=== PATIENT | male | born 1975 | race Two or more races ===

== ENCOUNTER 2024-03-15 18:19 | Emergency (ER) | payer OTHER ==
[~2024-03-15] VITALS: Ht 167.6 cm; Wt 100.3 kg
--- NOTE | 2024-03-15 19:27 | ED.PDOC ---
SOB-HPI HPI Comments 48-YEAR-OLD MALE PRESENTS TO ER WITH COMPLAINTS OF COUGH X1 WEEK. PATIENT REPORTS HE HAS BEEN EXPERIENCING COUGH X1 WEEK WITH ASSOCIATED FEVER X1 DAY. REPORTS THAT THE COUGH WAS INITIALLY DRY BUT TURNED PRODUCTIVE WITH YELLOW PHLEGM X2 DAYS. REPORTS USE OF [id number] COUGH SYRUP WITHOUT RELIEF. PATIENT PRESENTS TO ER FEBRILE ON ARRIVAL AT 102.8 F, AMBULATORY, WITH STEADY GAIT, IN NO DISTRESS AND REPORTS POSITIVE EXPOSURE TO SICK CONTACTS AT HOME. DENIES CHEST PAIN, HEMOPTYSIS, SHORTNESS OF BREATH, PALPITATIONS, SORE THROAT, NAUSEA/VOMITING, HEADACHE, DIZZINESS, ABDOMINAL PAIN OR ANY FURTHER SYMPTOMS/COMPLAINTS Chief Complaint: Flu like Time Seen by MD: 18:23 Primary Care Provider: SAMMI Reviewed notes: Nurses Notes, Medications, Allergies Information Source: Patient Mode of Arrival: Ambulatory Past Medical History Past Medical History (Other): Pneumonia-2006 Surgical History: Denies all surgeries Family History Family History: Unknown Social History Lives In: Home Constitutional: reports: others ( STATED IN HPI) EENTM: denies: blurred vision, double vision, ear bleeding, ear discharge, ear drainage, ear pain, ear ringing, eye pain, eye redness, hearing loss, mouth pain, mouth swelling, nasal discharge, nose bleeding, nose congestion, nose pain, photophobia, tearing, throat pain, throat swelling, voice changes, others Respiratory: reports: others ( STATED IN HPI) Cardiovascular: denies: chest pain, dizzy spells, diaphoresis, Dyspnea on exertion, edema, irregular heart beat, left arm pain, lightheadedness, palpitations, PND, syncope, others Gastrointestinal: denies: abdomen distended, abdominal pain, blood streaked bowels, constipated, diarrhea, dysphagia, difficulty swallowing, hematemesis, melena, nausea, poor appetite, poor fluid intake, rectal bleeding, rectal pain, vomiting, others Genitourinary: denies: burning, dysuria, flank pain, frequency, hematuria, incontinence, penile discharge, penile sore, pain, testicle pain, testicle swelling, urgency, others Neurological: denies: dizziness, fainting, headache, left sided numbness, left sided weakness, numbness, paresthesia, pre-existing deficit, right sided numbness, right sided weakness, seizure, speech problems, tingling, tremors, weakness, others Musculoskeletal: denies: back pain, gout, joint pain, joint swelling, muscle pain, muscle stiffness, neck pain, others Integumetry: denies: bruises, change in color, change in hair/nails, dryness, laceration, lesions, lumps, rash, wounds, others Allergic/Immunocompromised: denies: Difficulty Healing, Frequent Infections, Hives, Itching, others Hematologic/Lymphatic: denies: anemia, blood clots, easy bleeding, easy bruising, swollen glands, others Endocrine: denies: excessive hunger, excessive sweating, excessive thirst, excessive urination, flushing, intolerance to cold, intolerance to heat, unexplained weight gain, unexplained weight loss, others Psychiatric: denies: anxiety, bipolar disorder, depression, hopeless, panic disorder, schizophrenia, sleepless, suicidal, others Physical Exam General Appearance: No Apparent Distress, Obese HEENT: Normal ENT Inspection, PERRL/EOMI, Pharynx Normal, TMs Normal Neck: Full Range of Motion, Non-Tender, Normal Respiratory: Chest Non-Tender, Decreased Breath Sounds (Slightly noted to right lower lung sainz), Lungs Clear, No Accessory Muscle Use, No Respiratory Distress Cardiovascular: No Murmur, No Gallop, Tachycardia Breast Exam: Deferred Gastrointestinal: No Organomegaly, Non Tender, No Pulsatile Mass, Soft Genitalia: Deferred Pelvic: Deferred Rectal: Deferred Extremities: Normal capillary refill, Normal range of motion Neurologic: Alert, No Motor Deficits, Normal Affect, Normal Mood, No Sensory Deficits Cerebellar Function: Normal Reflexes: Normal Skin: Dry, Normal Color, Warm Peripheral Pulses: 3+ Radial (R), 3+ Radial (L), 3+ Brachial (R), 3+ Brachial (L) Lymphatic: No Adenopathy Was a procedure done? Was a procedure done?: No Sedation Sedation?: No Differential Dx Differential Diagnosis: Pneumonia, Pulmonary Embolism, Respiratory Distress, Pharyngitis X-Ray, Labs, Meds, VS Vital Signs Date Time Temp Pulse Resp B/P (MAP) Pulse Ox O2 Delivery O2 Flow Rate FiO2 03/15/24 22:01 98.6 98.6 03/15/24 21:07 100.0 03/15/24 21:07 100.0 117 20 117/67 (84) 98 100.0 03/15/24 21:00 94 Room Air* 0 21 03/15/24 19:59 102.8 03/15/24 18:43 94 0 03/15/24 18:43 102.8 122 17 117/84 (95) 94 Lab Test 03/15/24 20:05 Range/Units White Blood Count 12.0 H 4.4-10.8 10^3/uL Red Blood Count 4.90 4.5-5.90 10^6/uL Hemoglobin 15.2 13.5-17.5 g/dL Hematocrit 44.4 41.0-53.0 % Mean Corpuscular Volume 90.5 80.0-100.0 fL Mean Corpuscular Hemoglobin 31.1 28.0-32.0 pg Mean Corpuscular Hemoglobin Concent 34.3 32.0-36.0 g/dL Red Cell Distribution Width 12.7 11.8-14.3 % Platelet Count 238 140-450 10^3/uL Mean Platelet Volume 7.8 6.9-10.8 fL Neutrophils (%) (Auto) 78.0 37.0-80.0 % Lymphocytes (%) (Auto) 10.3 10.0-50.0 % Monocytes (%) (Auto) 11.0 0.0-12.0 % Eosinophils (%) (Auto) 0.1 0.0-7.0 % Basophils (%) (Auto) 0.6 0.0-2.0 % Neutrophils # (Auto) 9.4 H 1.6-8.6 10 ^3/uL Lymphocytes # (Auto) 1.2 0.4-5.4 10 ^3/uL Monocytes # (Auto) 1.3 0-1.3 10 ^3/uL Eosinophils # (Auto) 0 0-0.8 10 ^3/uL Basophils # (Auto) 0.1 0-0.2 10 ^3/uL Nucleated Red Blood Cells 0.0 % D-Dimer, Quantitative 0.51 H 0.0-0.49 mg/L FEU Sodium Level 132 L 136-145 mmol/L Potassium Level 3.9 3.5-5.1 mmol/L Chloride Level 101 98-107 mmol/L Carbon Dioxide Level 24 20-31 mmol/L Anion Gap 7 5-15 Blood Urea Nitrogen 7 L 9-23 mg/dL Creatinine 0.84 0.700-1.30 mg/dL Glomerular Filtration Rate Calc 106 >90 mL/min BUN/Creatinine Ratio 8.3 L 10.0-20.0 Serum Glucose 229 H 74-106 mg/dL Lactic Acid Level 2.0 0.4-2.0 mmol/L Calcium Level 9.3 8.7-10.4 mg/dL Total Bilirubin 1.1 H 0.2-1.0 mg/dL Aspartate Amino Transferase (AST) 32 13-40 U/L Alanine Aminotransferase (ALT) 79 H 7-40 U/L Alkaline Phosphatase 115 46-116 U/L Troponin I High Sensitivity < 3 L </=54 ng/L Total Protein 7.3 5.7-8.2 g/dL Albumin 4.6 3.2-4.8 g/dL Current Medications Medications (Trade) Dose Ordered Sig/Janeth Route Start Time Stop Time Status Last Admin Ibuprofen (Motrin Tablet) 400 mg ONCE ONCE PO 03/15/24 18:45 03/15/24 18:46 DC 03/15/24 19:59 Ceftriaxone Sodium (Rocephin) 1,000 mg ONCE ONCE IM 03/15/24 18:45 03/15/24 18:46 DC 03/15/24 20:00 Methylprednisolone Sodium Succinate (Solu Medrol) 125 mg ONCE ONCE IM 03/15/24 18:45 03/15/24 18:46 DC 03/15/24 19:59 Azithromycin 250 ml @ 125 mls/hr ONCE ONCE IV 03/15/24 20:15 03/15/24 22:14 DC 03/15/24 20:59 Sodium Chloride 1,000 ml @ 1,000 mls/hr Q1H ONCE IV 03/15/24 20:15 03/15/24 21:14 DC 03/15/24 20:43 PATIENT: VALERIO RAMOS ACCT: [id number] UNIT: [id number] : 1975 LOC: ER ROOM / BED: / AGE / SEX: 48 / M ADM STATUS: REG ER SERVICE 38 ORDERING PHYSICIAN: SAGRARIO WORKMAN PROCEDURE(s): CTACH - CT ANGIO CHEST CONTRAST REASON: elevated d-dimer, r/o PE ORDER NUMBER(s): [id number], ACCESSION NUMBER(s): [id number] Procedure: CT CT ANGIO CHEST CONTRAST Reason for study/Clinical History: elevated d-dimer, r/o PE Comparison Study: None available at time of dictation. Exam Date: 03/15/2024 09:49 PM Radiation Dose Information: CT Dose: CTDI volume is 23.89 mGy. Dose-length product is 927.51 mGy*cm Contrast: Type of contrast: Omnipaque 350 Contrast inject: 100 mL Contrast wasted:0 TECHNIQUE: After the uneventful administration of intravenous contrast intravenously, CT imaging was performed through the chest. Coronal and sagittal reformations were performed by the technologist. Sagittal and coronal MIP images were reconstructed in submitted for interpretation. FINDINGS: Lower Neck: Visualized portions of the thyroid gland are unremarkable. Aorta and Vasculature: Normal caliber of thoracic aorta. Lymph Nodes: No enlarged intrathoracic lymph nodes. Mediastinum: Heart size is normal. There is no pericardial effusion. The esophagus is unremarkable. Lungs: No focal consolidation, pleural effusion or significant pneumothorax. No suspicious pulmonary nodule or mass. Musculoskeletal: No acute osseous abnormality. Upper abdomen: Limited portions of the upper abdomen are unremarkable. IMPRESSION: 1. No findings of pulmonary emboli or pulmonary artery hypertension. 2. Please note opacification of the pulmonary artery was suboptimal. Required opacification is 266 Hounsfield units. Opacification achieved with 187HU. 3. There are no infiltrates or effusions. 4. All CT scans at this medical facility are performed using dose modulation techniques as appropriate to a performed exam including the following: Automated exposure control was utilized; adjustment of the MA and/or KV according to patient size; and use of iterative reconstruction technique. HS:Y ATED BY: HARRIS LOPEZ Jr., DO DICTATED DATE/TIME: 03/15/242306 SIGNED BY: HARRIS LOPEZ Jr., SIGNED DATE/TIME: 03/15/242306 CC: PATIENT: VALERIO RAMOS ACCT: [id number] UNIT: [id number] : 1975 LOC: ER ROOM / BED: / AGE / SEX: 48 / M ADM STATUS: REG ER SERVICE [id number] ORDERING PHYSICIAN: SAGRARIO WORKMAN PROCEDURE(s): CXR1 - CHEST XRAY 1 VIEW REASON: cough ORDER NUMBER(s): [id number], ACCESSION NUMBER(s): [id number] EXAM: XY CHEST XRAY 1 VIEW CLINICAL HISTORY: cough TECHNIQUE: Single AP view of the chest WID: COMPARISON: None FINDINGS: Lines and tubes: None Chest: The heart size and pulmonary vasculature is within normal limits. No pleural effusion, pneumothorax, or consolidation. The osseous structures are grossly intact. IMPRESSION: No acute cardiopulmonary abnormality. ATED BY: BAIRON ACOSTA MD DICTATED DATE/TIME: 03/15/242026 SIGNED BY: BAIRON ACOSTA MD SIGNED DATE/TIME: 03/15/242026 CC: Chest x-ray reviewed CT chest with IV contrast reviewed CBC reviewed-WBC 12.0 CMP reviewed-sodium 132, ALT 79 Lactic acid reviewed - normal D-dimer reviewed-0.51 Troponin reviewed - normal Influenza and esau swabs ordered - patient refused Rocephin 1 g IM ordered Solu-Medrol 125 mg IM ordered Ibuprofen 800 mg p.o. ordered HEP-LOCK IV ORDERED NS 1 L IV ORDERED NS 1 L IV ORDERED AZITHROMYCIN 500 MG IV ORDERED Patient had improvement in symptoms, denied any shortness of breath/chest pain and nontoxic appearing/ in no distress prior to discharge Advised to drink plenty of fluids Advised to follow up with PCP in 1-2 days Patient verbalized understanding and agreeable with current plan of care Advised to return to ER immediately if symptoms worsen Images Reviewed?: Images reviewed and evaluated by me Time of 1ST Reevaluation: 19:02 Reevaluation 1ST: N/A Time of 2ND Reevaluation: 23:20 Reevaluation 2ND: Improved Patient Education/Counseling: Diagnosis, Treatment, Prognosis, Need For Follow Up Family Education/Counseling: Diagnosis, Treatment, Prognosis, Need For Follow Up Departure 1 Departure Time of Disposition: 23:22 Impression: Primary Impression: Upper respiratory infection Qualified Codes: J06.9 - Acute upper respiratory infection, unspecified Disposition: 01 HOME / SELF CARE / HOMELESS Condition: Stable e-Prescriptions Acetaminophen (Acetaminophen) 500 Mg Tab 500 MG PO Q4HPRN, #30 TAB 0 Refills Prov: SAGRARIO WORKMAN 03/15/24 Prednisone (Prednisone) 20 Mg Tab 20 MG PO BID for 5 Days, #10 TAB 0 Refills Prov: SAGRARIO WORKMAN 03/15/24 Azithromycin (Azithromycin) 250 Mg Tab 250 MG PO DAILY MDD 500 for 5 Days, #6 TAB 0 Refills 2 TABLETS ORALLY ON DAY ONE, THEN 1 TABLET ORALLY DAILY FOR 4 DAYS Prov: SAGRARIO WORKMAN 03/15/24 Discharged With: Self Critical Care Note Critical Care Time?: No Stability Stability form required: No Heart Score Heart Score: Heart Score Response (Comments) Value History N/A 0 EKG N/A 0 Age N/A 0 Risk Factors N/A 0 Troponin N/A 0 Total 0 SAGRARIO WORKMAN Mar 15, 2024 19:27
[2024-03-15] MEDS: methylPREDNISolone SOD SUCC 125 MG/2 ML VL IM ONE (19:59)
[2024-03-15] MEDS: IBUPROFEN 400 MG TAB PO ONE (19:59)
[2024-03-15] MEDS: cefTRIAXone SOD 1,000 MG VL IM ONE (20:00)
[2024-03-15] MEDS ORDERED: AZIT-43 PO (20:02)
[2024-03-15] MEDS ORDERED: PRED20TA2 PO (20:02)
[2024-03-15] MEDS ORDERED: ACET500T58 PO ×2 (20:02→23:12)
[2024-03-15] MEDS ORDERED: SODIUM CHLORIDE 0.9% 1,000 ML IV ONE (20:15)
[2024-03-15 20:28] LABS: Basophils # (auto) 0.1 10 ^3/uL (0-0.2); Basophils % (auto) 0.6 % (0.0-2.0); Eosinophils # (auto) 0 10 ^3/uL (0-0.8); Eosinophils % (auto) 0.1 % (0.0-7.0); Hematocrit 44.4 % (41.0-53.0); Hemoglobin 15.2 g/dL (13.5-17.5); Lymphocytes # (auto) 1.2 10 ^3/uL (0.4-5.4); Lymphocytes % (auto) 10.3 % (10.0-50.0); Mean Corpuscular Hemoglobin 31.1 pg (28.0-32.0); Mean Corpuscular Hgb Conc. 34.3 g/dL (32.0-36.0); Mean Corpuscular Volume 90.5 fL (80.0-100.0); Monocytes # (auto) 1.3 10 ^3/uL (0-1.3); Neutrophils # (auto) 9.4 10 ^3/uL (1.6-8.6); Platelet Count (auto) 238 10^3/uL (140-450); Red Cell Distribution Width 12.7 % (11.8-14.3)
--- NOTE | 2024-03-15 20:29 | DVH ---
EXAM: XY CHEST XRAY 1 VIEW CLINICAL HISTORY: cough TECHNIQUE: Single AP view of the chest WID: COMPARISON: None FINDINGS: Lines and tubes: None Chest: The heart size and pulmonary vasculature is within normal limits. No pleural effusion, pneumothorax, or consolidation. The osseous structures are grossly intact. IMPRESSION: No acute cardiopulmonary abnormality.
[2024-03-15] MEDS: SODIUM CHLORIDE 0.9% 1,000 ML IV ONE (20:43)
[2024-03-15 20:59] LABS: Albumin 4.6 g/dL (3.2-4.8); Alkaline Phosphatase 115 U/L (46-116); Anion Gap 7 (5-15); Aspartate Aminotransferase 32 U/L (13-40); BUN/Creatinine Ratio 8.3 (10.0-20.0); Bilirubin, Total 1.1 mg/dL (0.2-1.0); Calcium 9.3 mg/dL (8.7-10.4); Carbon Dioxide 24 mmol/L (20-31); Chloride 101 mmol/L (98-107); Potassium 3.9 mmol/L (3.5-5.1); Total Protein 7.3 g/dL (5.7-8.2)
[2024-03-15] MEDS: AZITHROMYCIN 500MG/ 250ML 250 ML IV ONE (20:59)
[2024-03-15 21:00] VITALS: O2SAT 94
[2024-03-15 21:10] LABS: Alanine Aminotransferase 79 U/L (7-40); Blood Urea Nitrogen 7 mg/dL (9-23); Glucose 229 mg/dL (74-106); Sodium 132 mmol/L (136-145)
[2024-03-15] MEDS: IOHEXOL 350 MG/ML 100ML IJ ONE (22:05)
--- NOTE | 2024-03-15 23:09 | DVH ---
Procedure: CT CT ANGIO CHEST CONTRAST Reason for study/Clinical History: elevated d-dimer, r/o PE Comparison Study: None available at time of dictation. Exam Date: 03/15/2024 09:49 PM Radiation Dose Information: CT Dose: CTDI volume is 23.89 mGy. Dose-length product is 927.51 mGy*cm Contrast: Type of contrast: Omnipaque 350 Contrast inject: 100 mL Contrast wasted:0 TECHNIQUE: After the uneventful administration of intravenous contrast intravenously, CT imaging was performed through the chest. Coronal and sagittal reformations were performed by the technologist. Sagittal and coronal MIP images were reconstructed in submitted for interpretation. FINDINGS: Lower Neck: Visualized portions of the thyroid gland are unremarkable. Aorta and Vasculature: Normal caliber of thoracic aorta. Lymph Nodes: No enlarged intrathoracic lymph nodes. Mediastinum: Heart size is normal. There is no pericardial effusion. The esophagus is unremarkable. Lungs: No focal consolidation, pleural effusion or significant pneumothorax. No suspicious pulmonary nodule or mass. Musculoskeletal: No acute osseous abnormality. Upper abdomen: Limited portions of the upper abdomen are unremarkable. IMPRESSION: 1. No findings of pulmonary emboli or pulmonary artery hypertension. 2. Please note opacification of the pulmonary artery was suboptimal. Required opacification is 266 Ho unsfield units. Opacification achieved with 187HU. 3. There are no infiltrates or effusions. 4. All CT scans at this medical facility are performed using dose modulation techniques as appropriate to a performed exam including the following: Automated exposure control was utilized; adjustment of t he MA and/or KV according to patient size; and use of iterative reconstruction technique. HS:Y
[2024-03-15 23:25] VITALS: BP 130/77; PULSE 96; RESP 20; TEMP 98; O2SAT 95
== END 2024-03-15 23:27 | disposition home or self-care (01) ==
LOC: ER 18:19
DX: J06.9 Acute upper respiratory infection, unspecified (principal); R05.9 Cough, unspecified; R50.9 Fever, unspecified
CPT/HCPCS: 36415; 71045; 71275; 80053; 83605; 84484; 85025; 85379; 87040; 96365; 96366; 96372; 99285; J0456; J0696; J2919; Q9967; 87426; 87804